=== PATIENT | female | born 1985 | race Caucasian/White ===

== ENCOUNTER → 2016-03-18 | Outpatient (CLI) | payer OTHER | END | disposition home or self-care (01) | LOC: LAB.O 14:17 | PROVIDERS: ATTEND Nurse Practitioner Family | DX: E03.9 Hypothyroidism, unspecified (principal) ==

== ENCOUNTER → 2016-03-22 | Outpatient (CLI) | payer OTHER ==
--- NOTE | 2016-03-23 13:50 | US ---
EXAM DESCRIPTION: US THYROID CLINICAL HISTORY: Hypothyroidism, unspecified COMPARISON: None. TECHNIQUE: Real-time sonographic images of the thyroid are obtained. FINDINGS: Right lobe measures 4.5 x 1.6 x 1.9 cm. There is a 1.1 x 0.9 x 0.7 cm nodule of the upper pole. Nodule 1: Size: 11 x 9 x 7 mm Location: Superior pole right lobe 1.Composition: Solid 2.Echogenicity:Very hypoechoic 3.Shape: Wider than tall 4.Margins: Smooth 5.Echogenic foci: Absent The isthmus measures 2 mm in thickness. The left lobe measures 4.8 x 1.7 x 2.0 cm. Thyroid is diffusely heterogeneous in echogenicity with thickened internal septa. No collar flow imaging was provided to determine if this is hypervascular. IMPRESSION: Heterogeneous appearance to the thyroid raises suspicion for thyroiditis. Consider Carmen thyroiditis given the echotexture of the thyroid tissue. Small 1.1 cm solid nodule of the upper pole right lobe thyroid. . Electronically signed by: Steven Saab MD 03/23/2016 13:49
== END ==
LOC: US 13:00
PROVIDERS: ATTEND Nurse Practitioner Family
DX: E03.9 Hypothyroidism, unspecified (principal)

== ENCOUNTER → 2017-02-16 | Outpatient (CLI) | payer OTHER | END | disposition home or self-care (01) | LOC: LAB.O 12:59 | PROVIDERS: ATTEND Nurse Practitioner Family | DX: E03.9 Hypothyroidism, unspecified (principal) ==

== ENCOUNTER 2017-05-17 05:47 | Day surgery (SDC) | payer OTHER ==
[2017-05-17] MEDS ORDERED: LACTATED RINGERS 1,000 ML ONE (06:18)
[2017-05-17] MEDS ORDERED: MIDAZOLAM INJ 2 MG/2 ML VIAL ONE (07:47)
[2017-05-17] MEDS ORDERED: fentaNYL CITRATE INJ 50 MCG/ML AMP ONE (07:48)
[2017-05-17] MEDS ORDERED: ELECTROLYTE-A 0 ML IVS ONE (08:57)
[2017-05-17] MEDS ORDERED: PROPOFOL 200 MG/20 ML VIAL IV ONE (10:00)
[2017-05-17] MEDS ORDERED: LIDOCAINE 1% 10 ML VIAL INJ ONE (10:00)
--- NOTE | 2017-05-17 10:10 | OP ---
DATE OF PROCEDURE: 05/17/17 PREOPERATIVE DIAGNOSIS: 1. Family history of in colon cancer in her father at a premature age. He was about 42 at the time of diagnosis. 2. This is the patient's first colonoscopy. POSTOPERATIVE DIAGNOSIS: 1. Three colonic polyps which had the appearance of sessile serrated polyps. 2. 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 PROCEDURE: 1. Colonoscopy plus polypectomy plus biopsy. SURGEON: Yoshi Dior MD. COMPLICATIONS: None apparent. BLOOD LOSS: None. MEDICATIONS: Monitored anesthesia care. DESCRIPTION OF PROCEDURE: Informed consent was obtained prior to sedation. The preprocedure cardiopulmonary assessment was satisfactory. The patient was placed in the left lateral decubitus position and was sedated. A digital rectal exam was unremarkable. The tip of the Olympus colonoscope was inserted in the rectum and guided over to the cecum. The cecum was identified by locating the ileocecal valve and appendiceal orifice. Prep was good. The ileocecal valve was intubated and the distal terminal ileum is unremarkable. The mucosa of the cecum, ascending colon, hepatic flexure, transverse colon, splenic flexure, descending colon and sigmoid colon was closely examined. Direct and retroflexed views of the rectum were obtained. The exam was significant for four things. Firstly, there was an ulcer about 2x2 cm on the ileocecal valve. It does not have a malignant appearance. However, she does not have any symptoms of inflammatory bowel disease, no abdominal pain, no diarrhea, no bleeding. I took biopsies of this ulcer at its base and of its edges. The patient has three polyps in the colon. She had a 5 mm descending colon polyp that is very flat and had a mucus cap. This was removed with a cold snare and recovered. The second polyp was a 10 mm sessile polyp in the distal ascending colon. This also had a mucus cap and had the appearance of a sessile serrated adenoma. This was remove with a hot snare and recovered. Finally, the proximal ascending colon, there was a fairly flat sessile polyp that was about 2 cm in greatest dimension. There was no mucus cap over it, but it certainly has the appearance of a sessile serrated polyp. This was removed in a piecemeal fashion with a hot snare and it was recovered. The procedure was then terminated. RECOMMENDATIONS: 1. Followup the polyp results and the biopsy results. #[id number] #[id number] cc: GRACE Ruiz
[2017-05-17 12:52] VITALS: BP 98/60; TEMP 97.1; O2SAT 99
== END 2017-05-17 10:10 | disposition home or self-care (01) ==
LOC: AMB 05:47
PROVIDERS: ATTEND Internal Medicine Gastroenterology
DX: Z12.11 Encounter for screening for malignant neoplasm of colon (principal); D12.2 Benign neoplasm of ascending colon; D12.4 Benign neoplasm of descending colon; K63.3 Ulcer of intestine; R19.7 Diarrhea, unspecified; E66.9 Obesity, unspecified; F17.210 Nicotine dependence, cigarettes, uncomplicated; Z68.37 Body mass index [BMI] 37.0-37.9, adult; Z80.0 Family history of malignant neoplasm of digestive organs; Z83.71 Family history of colonic polyps; Z79.899 Other long term (current) drug therapy

== ENCOUNTER 2018-03-27 05:02 | Emergency (ER) | payer SELFPAY ==
[2018-03-27 05:17] VITALS: BP 117/71; O2SAT 100
[2018-03-27] MEDS ORDERED: LIDOCAINE 1% 2 ML VIAL INJ ONE (06:04)
[2018-03-27] MEDS ORDERED: cefTRIAXone SODIUM 1 GM VIAL ONE (06:04)
--- NOTE | 2018-03-27 06:04 | ED.PDOC ---
History of Present Illness - General Chief Complaint: Problem Stated Complaint: blood in urine Time Seen by Provider: 03/27/18 05:57 Source: patient, RN notes reviewed - History of Present Illness Initial Comments: SHE HAS BEEN NOTICING A STRONG ODOR ON THE URINE FOR THE PAST SEVERAL DAYS AND NOW SHE HAS LONA BLOOD IN THE URINE. SHE WAS SEEN BY HER PCP IN THE RECENT PAST AND WAS GIVEN A GRAM OF ZITHROMAX BUT THIS HAD NO EFFECT. NOW THE URINE HAS TURNED RED. Timing/Duration: other - DAYS AGO Quality: moderate Radiation: none Sexual intercourse history: single partner Improving Factors: nothing Worsening Factors: nothing Associated Symptoms: denies symptoms Allergies/Adverse Reactions: Allergies NO KNOWN ALLERGY Allergy (Unverified 01/26/12 00:30) Home Medications: Ambulatory Orders Thyroid [[place] Thyroid] 180 mg PO DAILY 05/15/17 Sulfamethoxazole-Trimethoprim [Bactrim Ds 800-160 mg] 1 tablet PO BID #20 tablet 03/27/18 Review of Systems - Review of Systems Constitutional: States: no symptoms reported EENTM: States: no symptoms reported Respiratory: States: no symptoms reported Cardiology: States: no symptoms reported Gastrointestinal/Abdominal: States: no symptoms reported Genitourinary: States: hematuria Musculoskeletal: States: no symptoms reported Skin: States: no symptoms reported Neurological: States: no symptoms reported Past Medical History (General) - Patient Medical History Hx Seizures: No Hx Stroke: No Hx Asthma: No Hx of COPD: No Hx Cardiac Disorders: No Hx Congestive Heart Failure: No Hx Pacemaker: No Hx Hypertension: No Hx Thyroid Disease: Yes Hx Diabetes: No Hx MRSA: No - Vaccination History Hx Influenza Vaccination: Yes - Social History Hx Alcohol Use: No Hx Substance Use: No Hx Physical Abuse: No Hx Emotional Abuse: No - Female History Patient is a Female of Child Bearing Age (10 -59 yrs old): Yes Hx Last Menstrual Period: 01/08/12 Patient : No Family Medical History - Family History Father Family History: Unknown Physical Exam - Physical Exam General Appearance: Alert, Well Developed, Well Groomed, Well Hydrated, Well Nourished Eyes, Ears, Nose, Throat Exam: PERRL/EOMI Neck: non-tender, full range of motion, supple Cardiovascular/Respiratory: regular rate, rhythm, no M/R/G, normal peripheral pulses Gastrointestinal/Abdominal: normal bowel sounds, soft, no organomegaly Rectal Exam: deferred Neurologic: alert, oriented x 3 Skin Exam: normal color Lymphatic: no adenopathy Progress - Results/Orders Results/Orders: 03/27/18 05:12 Urine Culture Stat 03/27/18 06:06 [id number] SODIUM [Rocephin] 1 gm IM ONCE ONE UA [URINALYSIS] Stat Laboratory Results Urine Color Yellow (Yellow) 03/27/18 05:12 Urine Appearance Cloudy (Clear) 03/27/18 05:12 Urine pH 5.0 (4.5-7.8) 03/27/18 05:12 Ur Specific [place] 1.025 (1.005-1.030) 03/27/18 05:12 Urine Protein 30 mg/dL 03/27/18 05:12 Urine Glucose (UA) Negative mg/dL (Negative) 03/27/18 05:12 Urine Ketones Negative mg/dL (NEGATIVE) 03/27/18 05:12 Urine Blood Large (Negative) H 03/27/18 05:12 Urine Nitrite Negative 03/27/18 05:12 Urine Bilirubin Negative (NEGATIVE) 03/27/18 05:12 Urine Urobilinogen 0.2 mg/dL (0.2-1.0) 03/27/18 05:12 Ur Leukocyte Esterase Moderate (Negative) H 03/27/18 05:12 Urine RBC Tntc /hpf H 03/27/18 05:12 Urine WBC >50 /hpf H 03/27/18 05:12 Ur Epithelial Cells 5-10 /hpf 03/27/18 05:12 Urine Bacteria 2+ H 03/27/18 05:12 Departure - Departure Clinical Impression: Cystitis Time of Disposition: 06:08 Disposition: Discharge to Home or Self Care Condition: Good Departure Forms: ED Discharge - Pt. Copy, Patient Portal Self Enrollment Instructions: DI for Urinary Tract Infection (UTI) Diet: regular diet Referrals: NETO LOTT IV, DATA GOVERNANCE ANALYST [Primary Care Provider] - 1-2 Weeks Prescriptions: Sulfamethoxazole-Trimethoprim [Bactrim Ds 800-160 mg] 1 tablet PO BID #20 tablet Home Medications: Ambulatory Orders Thyroid [[place] Thyroid] 180 mg PO DAILY 05/15/17 Sulfamethoxazole-Trimethoprim [Bactrim Ds 800-160 mg] 1 tablet PO BID #20 tablet 03/27/18 Comments: DRINK EXTRA FLUIDS. AT THE END OF THE TREATMENT YOU WILL NEED A REPEAT URINE TEST TO BE SURE YOUR INFECTION HAS CLEARED.
[2018-03-27] MEDS ORDERED: cefTRIAXone SODIUM 1 GM VIAL IM ONE (06:06)
[2018-03-27 06:29] VITALS: TEMP 98.9
== END 2018-03-27 06:30 | disposition home or self-care (01) ==
LOC: ER 05:02
DX: N30.91 Cystitis, unspecified with hematuria (principal); E07.9 Disorder of thyroid, unspecified
CPT/HCPCS: 81001; 87086; J0696